=== PATIENT | female | born 2000 ===

== ENCOUNTER 2022-07-10 21:10 | Inpatient (IN) ==
[2022-07-10] MEDS ORDERED: BUTORPHANOL 2 MG/ML VIAL IV PRN (21:24)
[2022-07-10] MEDS ORDERED: LACTATED RINGERS 500 ML IV PRN (21:24)
[2022-07-10] MEDS ORDERED: TRANEXAMIC ACID 1,000 MG in SODIUM CHLORIDE 0.9% 100 ML IV PRN (21:24)
[2022-07-10] MEDS ORDERED: OXYTOCIN/LR 20 UNIT/1,000 ML BAG IV ONE (21:24)
[2022-07-10] MEDS ORDERED: CARBOPROST TROMETHAMINE 250 MCG/ML AMP IM PRN (21:24)
[2022-07-10] MEDS ORDERED: miSOPROStoL 200 MCG TABLET RECTAL PRN (21:24)
[2022-07-10] MEDS ORDERED: ACETAMINOPHEN 500 MG TABLET PO PRN (21:24)
[2022-07-10] MEDS ORDERED: MEPERIDINE 50 MG/1 ML VIAL IV PRN ×2 (21:24→21:31)
[2022-07-10] MEDS ORDERED: ONDANSETRON 4 MG/2 ML VIAL IV PRN (21:24)
[2022-07-10] MEDS ORDERED: LACTATED RINGERS 250 ML IV ONE (21:24)
[2022-07-10] MEDS ORDERED: BUTORPHANOL 1 MG/ML VIAL IV PRN (21:24)
[2022-07-10] MEDS ORDERED: METHYLERGONOVINE 0.2 MG/1 ML AMP IM PRN (21:24)
[2022-07-10 22:17] LABS: Basophils % 0.1 % (0.0-0.8); Eosinophils % 0.3 % (0.00-10.9); Hematocrit 32.5 VOL% (35.7-47.0); Hemoglobin 11.2 GM/DL (12.0-16.0); Immature Granulocytes % 0.6 %; Immature Granulocytes Absolute 0.04 #; Lymphocytes # 1.1 10*3/uL (1.4-4.0); Lymphocytes % 15.3 % (21.3-54.2); Mean Corpuscular HGB Conc 34.5 GM/DL (32-36); Mean Corpuscular Volume 82.9 FL (87-102); Mean Platelet Volume 10.3 FL (9.6-12.0); Monocytes # 0.5 10*3/uL (0.11-0.8); Monocytes % 7.4 % (1.7-12.7); Neutrophils % 76.3 % (38.7-73.9); Platelet Count 265 T/CUMM (130-400); Red Blood Count 3.92 MC/CUMM (3.8-5.5); Red Cell Distribution Width 12.5 % (9.3-17.3); White Blood Count 6.9 T/CUMM (4-12)
[2022-07-10 22:39] LABS: Albumin 2.6 G/DL (3.4-5.0); Bilirubin,Total 0.4 MG/DL (0.20-1.00); Calcium 8.6 MG/DL (8.5-10.1); Osmolality,Calculated 272.5 MOS/KG (273-304); Potassium 4.4 MMOL/L (3.5-5.1); Total Protein 6.9 G/DL (6.4-8.2)
[2022-07-11] MEDS ORDERED: NALOXONE 0.4 MG/ML VIAL IV PRN (06:59)
[2022-07-11] MEDS ORDERED: PROMETHAZINE 25 MG/1 ML VIAL IM ONE (06:59)
[2022-07-11] MEDS ORDERED: ONDANSETRON 4 MG/2 ML VIAL IV ONE (06:59)
[2022-07-11] MEDS ORDERED: ePHEDrine 50 MG/ML VIAL IV PRN (06:59)
[2022-07-11] MEDS ORDERED: diphenhydrAMINE 50 MG/1 ML VIAL IV PRN ×2 (06:59)
[2022-07-11] MEDS ORDERED: hydrOXYzine HCL 25 MG/1 ML VIAL IM PRN (06:59)
[2022-07-11] MEDS ORDERED: fentaNYL 2 MCG/ROPIV 0.2% EPID 100 ML EPIDURAL SCH (07:00)
[2022-07-11] MEDS ORDERED: FAMOTIDINE 20 MG/2 ML VIAL IV ONE (07:01)
[2022-07-11] MEDS ORDERED: CITRIC ACID/SODIUM CITRATE 30 ML UDCUP PO ONE (07:01)
[2022-07-11] MEDS: LACTATED RINGERS 1,000 ML IV SCH ×3 (07:33→14:34)
[2022-07-11] MEDS ORDERED: OXYTOCIN/LR 20 UNIT/1,000 ML BAG IV SCH (09:00)
[2022-07-11 12:09] LABS: Mucus,Urine Occasional /LPF (Occasional); RBC,Urine 2 /HPF (0-4); Urine Appearance Clear (Clear); Urine Color Yellow (Yellow); Urine Specific Gravity 1.015 (1.001-1.035); Urine pH 6.5 (4.5-8.0)
[2022-07-11 12:10] LABS: Bilirubin,Urine Negative (Negative); Blood, Urine Negative (Negative); Glucose,Urine (UA) Negative (Negative); Ketones,Urine Negative (Negative); Nitrite,Urine Negative (Negative); Protein,Urine Negative (Negative)
[2022-07-11] MEDS ORDERED: miSOPROStoL 200 MCG TABLET ONE (12:39)
[2022-07-11] MEDS ORDERED: CARBOPROST TROMETHAMINE 250 MCG/ML AMP IM ONE (12:40)
[2022-07-11] MEDS ORDERED: METHYLERGONOVINE 0.2 MG/1 ML AMP ONE (12:40)
[2022-07-11 13:31] LABS: Cord Venous Blood PCO2 46.6 MMHG; Cord Venous Blood PO2 34.5
[2022-07-11] MEDS: IBUPROFEN 800 MG TABLET PO PRN (18:40)
[2022-07-11] MEDS: oxyCODONE/ACETAMINOPHEN 5-325 MG TABLET PO PRN ×2 (18:40)
[2022-07-11] MEDS: DOCUSATE SODIUM 100 MG CAPSULE PO SCH (21:18)
[2022-07-11] MEDS ORDERED: BENZOCAINE 20%/MENTHOL 0.5% SPRAY 56 GM CAN TOP PRN (22:34)
[2022-07-12] MEDS: oxyCODONE/ACETAMINOPHEN 5-325 MG TABLET PO PRN ×2 (00:34→20:46)
[2022-07-12 06:18] LABS: Basophils % 0.1 % (0.0-0.8); Eosinophils # 0.1 10*3/uL (0.0-0.87); Eosinophils % 0.6 % (0.00-10.9); Hematocrit 30.6 VOL% (35.7-47.0); Hemoglobin 10.3 GM/DL (12.0-16.0); Immature Granulocytes % 0.4 %; Immature Granulocytes Absolute 0.04 #; Lymphocytes # 1.4 10*3/uL (1.4-4.0); Lymphocytes % 13.8 % (21.3-54.2); Mean Corpuscular HGB Conc 33.7 GM/DL (32-36); Mean Corpuscular Volume 84.5 FL (87-102); Mean Platelet Volume 10.3 FL (9.6-12.0); Monocytes # 0.8 10*3/uL (0.11-0.8); Monocytes % 8.3 % (1.7-12.7); Neutrophils % 76.8 % (38.7-73.9); Platelet Count 214 T/CUMM (130-400); Red Blood Count 3.62 MC/CUMM (3.8-5.5); Red Cell Distribution Width 12.6 % (9.3-17.3); White Blood Count 9.8 T/CUMM (4-12)
[2022-07-12] MEDS: DOCUSATE SODIUM 100 MG CAPSULE PO SCH ×2 (09:00→20:45)
[2022-07-12] MEDS: IBUPROFEN 800 MG TABLET PO PRN ×2 (09:00→20:46)
[2022-07-12] MEDS ORDERED: WITCH HAZEL PADS 100/JAR TOP PRN (20:39)
[2022-07-12] MEDS ORDERED: HYDROCORTISONE 2.5% RECTAL CREAM 30 GM TUBE TOP PRN (20:39)
[2022-07-13] MEDS: IBUPROFEN 800 MG TABLET PO PRN (04:41)
[2022-07-13] MEDS: oxyCODONE/ACETAMINOPHEN 5-325 MG TABLET PO PRN (04:42)
[2022-07-13] MEDS: DOCUSATE SODIUM 100 MG CAPSULE PO SCH (08:15)
[2022-07-13 09:28] VITALS: BP 130/83
== END 2022-07-13 11:20 | disposition home or self-care (01) | DRG 560 ==
LOC: N.LD 21:10 → N.OB 07-11 17:43
PROVIDERS: ADMIT Obstetrics & Gynecology; ATTEND Obstetrics & Gynecology